=== PATIENT | female | born 1940 | race Caucasian/White ===

== ENCOUNTER 2019-11-26 12:01 | Inpatient (IN) | payer MEDICARE ==
[~2019-11-26] VITALS: Ht 170.2 cm; Wt 81.1 kg
--- NOTE | 2019-11-26 12:45 | NUR ---
Patient in room ORTHO 4009. I have received report from Thelma in [facility] and had the opportunity to ask questions and assume patient care.
--- NOTE | 2019-11-26 16:40 | NUR ---
Pt arrived from [facility], cked in, vitals taken, skin check, paged MD
--- NOTE | 2019-11-26 16:44 | NUR ---
PAGER ID: [phone] MESSAGE: Nicki Antunez on Neuro, Ms. Diggs from [place] has arrived. Pt is in 1910W
[2019-11-26 16:49] VITALS: BP 149/82
[2019-11-26] MEDS ORDERED: magnesium 2GM in 50ml NS 50 ML IV PRN (17:55)
[2019-11-26] MEDS ORDERED: acetaminophen 325mg tablet PO PRN ×2 (17:55)
[2019-11-26] MEDS ORDERED: mag hydrox/Alum hydrox/simeth 30ml oral suspension PO PRN (17:55)
[2019-11-26] MEDS ORDERED: magnesium 4gm in 100ml NS 100 ML IV PRN (17:55)
[2019-11-26] MEDS ORDERED: magnesium hydroxide 30ml (MOM) UD suspension PO PRN (17:55)
[2019-11-26] MEDS ORDERED: morphine 2 MG/ML inj. syringe IV PRN (17:55)
[2019-11-26] MEDS ORDERED: glucagon, human recombinant 1mg kit SUBCUT PRN (17:55)
[2019-11-26] MEDS ORDERED: MESSAGE TO PHARMACY PO ONE (17:55)
[2019-11-26] MEDS ORDERED: ondansetron/PF 4mg/2ml inj IV PRN (17:55)
[2019-11-26] MEDS ORDERED: magnesium Cl slow-release 64mg tablet PO PRN (17:55)
[2019-11-26] MEDS ORDERED: atorvastatin 10mg tablet PO SCH (17:55)
[2019-11-26] MEDS ORDERED: HYDROcodone/acetaminophen 10/325mg tab PO PRN (17:55)
[2019-11-26] MEDS ORDERED: bisacodyl 10mg suppository rectal RC PRN (17:55)
[2019-11-26] MEDS ORDERED: dextrose 50%-water 50ml dispensing syringe IV PRN ×2 (17:55)
[2019-11-26] MEDS ORDERED: potassium Cl 20 mEq SR tablet PO PRN ×2 (17:55)
[2019-11-26] MEDS ORDERED: dextrose ORAL solution 15 GM/59 ML bottle PO PRN ×2 (17:55)
[2019-11-26] MEDS ORDERED: acetaminophen 650mg rectal suppository RC PRN (17:55)
[2019-11-26] MEDS ORDERED: potassium CL 10mEq/100ml bag 100 ML IV PRN ×2 (17:55)
[2019-11-26] MEDS ORDERED: HYDROcodone/acetaminophen 5mg/325mg tablet PO PRN (17:55)
[2019-11-26 18:00] VITALS: BP 163/91
--- NOTE | 2019-11-26 18:18 | NUR ---
Problems reprioritized. Patient report given, questions answered & plan of care reviewed with
--- NOTE | 2019-11-26 18:40 | NUR ---
Patient in room ORTHO 4009. I have received report from Nicki FORD and had the opportunity to ask questions and assume patient care.
[2019-11-26] MEDS ORDERED: atorvastatin 20mg tablet PO SCH (19:20)
[2019-11-26] MEDS ORDERED: IPRA3AMP31 IH (19:25)
[2019-11-26] MEDS ORDERED: SACC250C PO (19:25)
[2019-11-26] MEDS ORDERED: ACET-75 PO (19:25)
[2019-11-26] MEDS ORDERED: INSU100I8 SQ (19:35)
[2019-11-26] MEDS ORDERED: APIX5TAB3 PO (19:35)
[2019-11-26] MEDS ORDERED: DULO60CA65 PO (19:35)
[2019-11-26] MEDS ORDERED: METO-384 PO (19:35)
[2019-11-26] MEDS ORDERED: LISI-600 PO (19:35)
[2019-11-26] MEDS ORDERED: LEVO50TA PO (19:35)
[2019-11-26] MEDS ORDERED: ATOR20TA66 PO (19:35)
[2019-11-26] MEDS ORDERED: [UNRECOGNIZED DRUG - CODE] IV (19:37)
[2019-11-26] MEDS ORDERED: AZIT500T9 PO (19:37)
--- NOTE | 2019-11-26 19:44 | NUR ---
[address] BACK TO ROOM FROM CT AND MRI. AT BEDSIDE. WILL INITIATE NEURO/TELE ORDERED. IVF'S STARTED.
[2019-11-26] MEDS: K and/or MAG REPLACEMENT MC SCH (20:00)
[2019-11-26] MEDS: normal saline 1000ml 1,000 ML IV SCH (20:03)
[2019-11-26] MEDS: heparin, porcine 5000 units/ml vial SQ SCH (20:55)
[2019-11-26] MEDS: insulin glargine (Lantus) pen - multi-dose SQ SCH (21:00)
[2019-11-26 21:07] LABS: HEMOGLOBIN A1C 9.1 % (4.5-6.2)
[2019-11-26 21:21] LABS: CHOL/HDL RATIO 4.4 (0.00-4.99); CHOLESTEROL 172 MG/DL (0-200); HDL CHOLESTEROL 39 MG/DL (35-60); LDL CHOLESTEROL 107 MG/DL (50-100); TRIGLYCERIDES 104 MG/DL (20-135); TROPONIN I < 0.04 NG/ML (0.0-0.05)
[2019-11-26 22:00] VITALS: BP 174/86
--- NOTE | 2019-11-26 23:26 | NUR ---
PATIENT NOT TURNING HEAD TO LEFT AT ALL WHEN ASKED, AND NO MOVEMENT TO L SIDE AT ALL. STATED HE USED A SWAB EARLIER TO MOISTEN HER MOUTH AND THAT PATIENT COUGHED AND "CHOKED". WILL CONTINUE TO KEEP PATIENT NPO TILL ABLE TO BE EVALUATED BY SPEECH THERAPY. HAVE NOTED PATIENT COUGHING ON SALIVA. SPEECH IS ALSO VERY DIFFICULT TO UNDERSTAND D/T L SIDE FACIAL DROOP/PARALYSIS.
[2019-11-27 02:00] VITALS: BP 176/93
[2019-11-27 06:00] VITALS: BP 188/99
--- NOTE | 2019-11-27 06:10 | NUR ---
COMPLETE LINEN CHANGE WITH SKIN CARE DONE AT 0500, PATIENT INCONTINENT OF LARGE AMT URINE, FOUND WICK OUT AND UNDER PATIENTS LEG, EDUCATED PATIENT ON IT'S PURPOSE, BUT SHE IS CONFUSED, WILL NEED REINFORCEMENT. WICK PLACED AFTER SKIN CARE AND PATIENT FELL ASLEEP. REPORT TO EARLY SHIFT RN
[2019-11-27 06:11] LABS: BASOPHILS % (AUTO) 0.4 % (0-1); EOSINOPHILS % (AUTO) 0.4 % (0-6); HEMOGLOBIN 13.4 g/dl (12.0-16.0); LYMPHOCYTES % (AUTO) 14.6 % (21-51); MEAN CORPUSCULAR HGB CONC 33.6 g/dL (33.0-36.5); MEAN CORPUSCULAR VOLUME 89.3 FL (78-98); MEAN PLATELET VOLUME 8.4 FL (7.4-10.4); MONOCYTES # (AUTO) 1.2 X10'3 (0-0.9); MONOCYTES % (AUTO) 8.6 % (2-12); NEUTROPHILS # (AUTO) 10.3 X10'3 (1.8-7.7); PLATELET COUNT 249 X10'3 (140-440); RED BLOOD COUNT 4.48 X10'6 (4.20-5.60); RED CELL DISTRIBUTION WIDTH 14.7 % (11.5-14.5); WHITE BLOOD COUNT 13.6 X10'3 (4.5-11.0)
[2019-11-27 06:43] LABS: ALANINE AMINOTRANSFERASE 25 U/L (12-78); ALBUMIN 3.4 G/DL (3.4-5.0); ALBUMIN/GLOBULIN RATIO 0.8 (1.1-1.5); ALKALINE PHOSPHATASE 106 IU/L (46-116); ANION GAP 11 (8-16); ASPARTATE AMINO TRANSFERASE 23 U/L (10-37); BILIRUBIN,TOTAL 0.8 MG/DL (0.1-1.0); BLOOD UREA NITROGEN 17 MG/DL (7-18); BUN/CREATININE RATIO 20.5 (6.6-38.0); CALCIUM 8.7 MG/DL (8.5-10.1); CHLORIDE 106 MMOL/L (99-107); CHOL/HDL RATIO 4.3 (0.00-4.99); CHOLESTEROL 153 MG/DL (0-200); CREATININE 0.83 MG/DL (0.40-0.90); GLUCOSE 192 MG/DL (70-104); HDL CHOLESTEROL 36 MG/DL (35-60); LDL CHOLESTEROL 93 MG/DL (50-100); MAGNESIUM 2.2 MG/DL (1.5-2.4); PHOSPHORUS 3.6 MG/DL (2.3-4.5); SODIUM 142 MMOL/L (135-145); TOTAL CARBON DIOXIDE 25.1 MMOL/L (24-32); TOTAL PROTEIN 7.5 G/DL (6.4-8.2); TRIGLYCERIDES 133 MG/DL (20-135); TROPONIN I < 0.04 NG/ML (0.0-0.05); eGFR 67 ML/MIN
[2019-11-27 06:44] LABS: POTASSIUM 3.4 MMOL/L (3.5-5.1)
--- NOTE | 2019-11-27 06:55 | NUR ---
REPORT GIVEN TO SETH FORD
[2019-11-27] MEDS: aspirin 325mg tablet, delayed-release (Ecotrin) PO SCH (07:41)
--- NOTE | 2019-11-27 07:41 | NUR ---
pt unable to swallow, pharmacy said that asprin is a one to one, there changed route of asprin from PO to suppository so nursing staff is able to admin medication, continue to monitor
[2019-11-27] MEDS: K and/or MAG REPLACEMENT MC SCH ×2 (08:00→20:00)
[2019-11-27] MEDS ORDERED: aspirin 300mg supp.rect RC SCH (08:00)
[2019-11-27] MEDS: insulin Lispro (HumaLOG) vial - multi-dose SQ SCH ×2 (09:38→13:58)
[2019-11-27] MEDS: normal saline 1000ml 1,000 ML IV SCH ×2 (09:44→23:23)
[2019-11-27 10:00] VITALS: BP 197/89
[2019-11-27] MEDS: duloxetine 30mg CAPSULE.DR PO SCH (10:00)
[2019-11-27] MEDS ORDERED: metoprolol succinate 25mg (24-HOUR) SR. Tablet PO SCH (10:00)
[2019-11-27] MEDS ORDERED: levoTHYROXINE 25mcg tablet PO SCH (10:00)
[2019-11-27] MEDS: ipratropium/albuterol 3ml nebule IH SCH ×3 (11:10→19:55)
--- NOTE | 2019-11-27 11:13 | NUR ---
DM/Donnie consults: A1C 9.1 hx T2DM and Donnie 12. Skin intact. Pt admit w/ acute CVA, UTI, new onset afib, hypothyroidism per MD. Pt AOx1 per EMR and significant trouble swallowing w/ L hemiplegia s/p CVA per MD; NPO pending RUSTIC FENCE BUILDER BSS. Pt is not appropriate for DM ed at this time. Will continue to monitor. Addendum: 11/27/19 at [address] Amended: Links added.
[2019-11-27] MEDS: heparin, porcine 5000 units/ml vial SQ SCH ×2 (11:35→23:26)
[2019-11-27] MEDS ORDERED: ipratropium/albuterol 3ml nebule IH SCH (13:00)
[2019-11-27] MEDS: morphine 2 MG/ML inj. syringe IV PRN (13:08)
[2019-11-27 14:00] VITALS: BP 191/91
[2019-11-27] MEDS ORDERED: CILASTATIN IV SCH (14:00)
[2019-11-27] MEDS ORDERED: IMIPENEM IV SCH (14:00)
--- NOTE | 2019-11-27 14:06 | NUR ---
md aware that nursing staff has checked for a 14f corkpak throughout the entire hospital and is only able to find 8, 10 and 12f, hospitalist notified and said to place the 12f and flush a lot
[2019-11-27 14:35] LABS: CLARITY,URINE SLIGHTLY CLOUDY (Clear); COLOR,URINE YELLOW (Yellow); GLUCOSE, URINE NEGATIVE (Neg); KETONES,URINE TRACE mg/dl (Neg); LEUKOCYTE ESTERASE ,URINE NEGATIVE (Neg); NITRITES, URINE NEGATIVE (Neg); OCCULT BLOOD,URINE NEGATIVE (Neg); PH,URINE 6.5 (4.8-8.0); PROTEIN,URINE TRACE mg/dl (Neg); UA COLLECTION TYPE STRAIGHT CATH; UROBILINOGEN,URINE 0.2 E.U/dL (0.2-1.0)
[2019-11-27 14:42] LABS: SQUAMOUS EPITHELIAL CELL,UR FEW /LPF (FEW)
[2019-11-27 14:44] LABS: BACTERIA,URINE FEW /HPF (Neg); RBC,URINE NONE SEEN /HPF (0-2); WBC,URINE 0-4 /HPF (0-4); YEAST MANY /HPF (NEGATIVE)
--- NOTE | 2019-11-27 15:53 | NUR ---
Call from radiologist, eliza johnson 5cm.
--- NOTE | 2019-11-27 16:05 | NUR ---
TF Consult: NGTF to start today. RN reports pt new scaled wt 71.8kg and RD d/w pt regarding ht who reports 5'7". Pt reports same ht per RN. Able to provide accurate EN recs; will monitor for EN tolerance. F/u: Pt NPO RN reports pending NG to be placed for nutrition today per MD; pending consult. Pt AOx1 s/p acute CVA w/ significant swallowing difficulty and L hemiplegia per EMR. Unable to make accurate TF recs currently since no ht in EMR and pending scaled wt this admit; RD notified RN. LBM 11/24. Will monitor for updated anthropometrics for EN recs, TF tolerance once initiated, and signs of refeeding syndrome given 5 days poor PO CHIEF LENDING OFFICER per RN. Rec: 1. NGTF per MD using Glucerna 1.2 at 65ml/hr goal; to provide 1560ml fluid, 1264ml free water, 1872kcals, and 94g protein. Initiate at 20ml/hr and advance 20ml Q8 to goal as tolerated. 2. water flush 150ml Q4 3. PALB Q /; daily wts 4. routine bowel care 5. once PO; advance diet as medically indicated to carb controlled Addendum: 11/27/19 at [address] Amended: Links added.
[2019-11-27] MEDS: MEROPENEM 1GM/NS 50ML IVPB IV SCH ×2 (16:23→23:34)
--- NOTE | 2019-11-27 16:45 | NUR ---
Patient pulled corpak, no other 12 fr available in the hospital. Will attempt to place 10 fr.
--- NOTE | 2019-11-27 16:54 | NUR ---
called requesting Chani Luna for rehab
--- NOTE | 2019-11-27 17:55 | NUR ---
PAGER ID: [phone] MESSAGE: [id number] Million pulled her corpak already. only 12 we could find. noc will place 10
[2019-11-27 18:00] VITALS: BP 189/96
[2019-11-27] MEDS ORDERED: lactobacillus rhamnosus 10,000 MMU CELLS/CAPSULE PO SCH (20:00)
[2019-11-27 22:00] VITALS: BP 163/95
[2019-11-27] MEDS: insulin glargine (Lantus) pen - multi-dose SQ SCH (23:25)
--- NOTE | 2019-11-28 01:55 | NUR ---
per Dr. Milli ashford to start tube feeding on 20ml/hr per protocol.
[2019-11-28 02:00] VITALS: BP 182/99
[2019-11-28] MEDS ORDERED: acetaminophen 325mg tablet CORPAK PRN ×2 (02:54→02:57)
[2019-11-28] MEDS ORDERED: dextrose ORAL solution 15 GM/59 ML bottle CORPAK PRN ×2 (02:58)
[2019-11-28] MEDS ORDERED: magnesium hydroxide 30ml (MOM) UD suspension CORPAK PRN (03:00)
--- NOTE | 2019-11-28 03:30 | NUR ---
tube feed started at 20ml/hr.
[2019-11-28] MEDS: insulin regular, human U-100 3ml vial - multi-dose SQ SCH ×2 (03:33→08:56)
[2019-11-28 06:00] VITALS: BP 184/100
[2019-11-28 06:35] LABS: BASOPHILS % (AUTO) 0.2 % (0-1); EOSINOPHILS % (AUTO) 0.1 % (0-6); HEMATOCRIT 40.3 % (35.0-45.0); HEMOGLOBIN 13.4 g/dl (12.0-16.0); LYMPHOCYTES # (AUTO) 2.2 X10'3 (1.1-4.8); LYMPHOCYTES % (AUTO) 14.2 % (21-51); MEAN CORPUSCULAR HEMOGLOBIN 29.5 PG (27.0-31.0); MEAN CORPUSCULAR HGB CONC 33.2 g/dL (33.0-36.5); MEAN CORPUSCULAR VOLUME 88.8 FL (78-98); MEAN PLATELET VOLUME 8.8 FL (7.4-10.4); MONOCYTES # (AUTO) 1.4 X10'3 (0-0.9); MONOCYTES % (AUTO) 9.1 % (2-12); NEUTROPHILS # (AUTO) 11.9 X10'3 (1.8-7.7); NEUTROPHILS % (AUTO) 76.4 % (42-75); PLATELET COUNT 253 X10'3 (140-440); RED BLOOD COUNT 4.53 X10'6 (4.20-5.60); RED CELL DISTRIBUTION WIDTH 14.3 % (11.5-14.5); WHITE BLOOD COUNT 15.6 X10'3 (4.5-11.0)
[2019-11-28 06:58] LABS: ALANINE AMINOTRANSFERASE 23 U/L (12-78); ALBUMIN 3.2 G/DL (3.4-5.0); ALBUMIN/GLOBULIN RATIO 0.7 (1.1-1.5); ALKALINE PHOSPHATASE 102 IU/L (46-116); ANION GAP 13 (8-16); ASPARTATE AMINO TRANSFERASE 14 U/L (10-37); BILIRUBIN,TOTAL 0.7 MG/DL (0.1-1.0); BLOOD UREA NITROGEN 18 MG/DL (7-18); CALCIUM 9.6 MG/DL (8.5-10.1); CHLORIDE 107 MMOL/L (99-107); CREATININE 0.72 MG/DL (0.40-0.90); GLUCOSE 189 MG/DL (70-104); MAGNESIUM 2.4 MG/DL (1.5-2.4); PHOSPHORUS 2.7 MG/DL (2.3-4.5); POTASSIUM 3.3 MMOL/L (3.5-5.1); PREALBUMIN 15.3 MG/DL (19-36); SODIUM 144 MMOL/L (135-145); TOTAL CARBON DIOXIDE 23.9 MMOL/L (24-32); TOTAL PROTEIN 7.6 G/DL (6.4-8.2); eGFR 79 ML/MIN
[2019-11-28] MEDS: ipratropium/albuterol 3ml nebule IH SCH ×4 (07:53→19:53)
[2019-11-28] MEDS: K and/or MAG REPLACEMENT MC SCH ×2 (08:00→19:45)
[2019-11-28] MEDS ORDERED: lisinopril 20mg tablet CORPAK SCH (08:00)
[2019-11-28] MEDS: lactobacillus rhamnosus 10,000 MMU CELLS/CAPSULE CORPAK SCH ×2 (08:57→20:40)
[2019-11-28] MEDS: atorvastatin 20mg tablet CORPAK SCH (08:58)
[2019-11-28] MEDS: levoTHYROXINE 25mcg tablet CORPAK SCH (08:58)
[2019-11-28] MEDS: aspirin 325mg tablet, delayed-release (Ecotrin) PO SCH (08:59)
[2019-11-28] MEDS: heparin, porcine 5000 units/ml vial SQ SCH ×2 (08:59→20:43)
[2019-11-28] MEDS: duloxetine 30mg CAPSULE.DR PO SCH (08:59)
[2019-11-28] MEDS: MEROPENEM 1GM/NS 50ML IVPB IV SCH ×3 (09:20→23:33)
[2019-11-28 10:05] VITALS: BP 169/87
[2019-11-28] MEDS: amLODIPine 5mg tablet PO SCH (10:05)
--- NOTE | 2019-11-28 14:30 | NUR ---
tube feed paused. Pt pulled Corpak mostly out of nose. Paged Speech therapy to see when they will be by to evaluate pt, no response. Awaiting speech therapy for swallow eval before attempting another Corpak. Addendum: 11/28/19 at 1646 by Bonny Kimble RN paged speech therapy multiple times. they will come see pt this afternoon. attempted to obtain another 16F corpak but that size no longer available at this time. will wait for speech to eval pt before attempting another corpak at this time. plan for pt to get peg tube tomorrow per Dr. Castañeda.
--- NOTE | 2019-11-28 17:18 | NUR ---
sukhdeep Castañeda - pt pulled out Abner. Speech therapy currently at bedside states pt can do puree & honey thick Addendum: 11/28/19 at 1725 by Bonny Kimble RN stated ok to put pt on diet and be careful for aspiration. ok to d/c Abner.
[2019-11-28] MEDS: POTASSIUM BICARB 20meq eff tab 20 MEQ TABLET.EFF PO PRN (17:50)
[2019-11-28 18:00] VITALS: BP 177/99
--- NOTE | 2019-11-28 18:00 | NUR ---
Patient in room PCU 3027. I have received report from Lizz FORD and had the opportunity to ask questions and assume patient care.
[2019-11-28] MEDS: metoprolol tartrate 25mg tablet PO SCH (20:39)
[2019-11-28] MEDS: insulin glargine (Lantus) pen - multi-dose SQ SCH (20:53)
[2019-11-28 22:00] VITALS: BP 160/85
[2019-11-29] VITALS (7 sets, daily range): BP systolic 131–198; BP diastolic 67–105
[2019-11-29] MEDS: hydrALAZINE 20mg/ml inj. IV PRN ×2 (04:43→21:14)
--- NOTE | 2019-11-29 04:45 | NUR ---
PLACED NEW 20GU. PIV LEFT FOREARM, PT'S BP ELEVATED 198/90, GAVE PRN HYDRALAZINE PER ORDERS. PLACED WICK FOR INCONTINENCE AND LEFT SIDE FLACID.
--- NOTE | 2019-11-29 04:59 | NUR ---
PT WAS CLEARED TO HAVE HONEY THICK LIQUIDS AND PUREE DIET. USE FOUR PACKETS "SIMPLY THICK " IN PITCHER OF WATER WITH ICE. 800ML.
[2019-11-29 06:30] LABS: BASOPHILS # (AUTO) 0.1 X10'3 (0-0.2); BASOPHILS % (AUTO) 0.6 % (0-1); EOSINOPHILS % (AUTO) 0.1 % (0-6); HEMATOCRIT 41.9 % (35.0-45.0); HEMOGLOBIN 13.9 g/dl (12.0-16.0); LYMPHOCYTES # (AUTO) 2.1 X10'3 (1.1-4.8); MEAN CORPUSCULAR HEMOGLOBIN 29.3 PG (27.0-31.0); MEAN CORPUSCULAR HGB CONC 33.2 g/dL (33.0-36.5); MEAN CORPUSCULAR VOLUME 88.2 FL (78-98); MEAN PLATELET VOLUME 8.8 FL (7.4-10.4); MONOCYTES # (AUTO) 1.2 X10'3 (0-0.9); MONOCYTES % (AUTO) 7.7 % (2-12); NEUTROPHILS # (AUTO) 12.7 X10'3 (1.8-7.7); NEUTROPHILS % (AUTO) 78.6 % (42-75); PLATELET COUNT 287 X10'3 (140-440); RED BLOOD COUNT 4.75 X10'6 (4.20-5.60); RED CELL DISTRIBUTION WIDTH 14.4 % (11.5-14.5); WHITE BLOOD COUNT 16.1 X10'3 (4.5-11.0)
--- NOTE | 2019-11-29 06:36 | NUR ---
REPORT GIVEN TO LOGAN ANN.
[2019-11-29 06:43] LABS: ALANINE AMINOTRANSFERASE 24 U/L (12-78); ALBUMIN 3.3 G/DL (3.4-5.0); ALBUMIN/GLOBULIN RATIO 0.7 (1.1-1.5); ALKALINE PHOSPHATASE 108 IU/L (46-116); ANION GAP 11 (8-16); ASPARTATE AMINO TRANSFERASE 16 U/L (10-37); BILIRUBIN,TOTAL 0.8 MG/DL (0.1-1.0); BLOOD UREA NITROGEN 18 MG/DL (7-18); BUN/CREATININE RATIO 25.7 (6.6-38.0); CALCIUM 9.8 MG/DL (8.5-10.1); CHLORIDE 102 MMOL/L (99-107); GLUCOSE 276 MG/DL (70-104); MAGNESIUM 2.2 MG/DL (1.5-2.4); PHOSPHORUS 2.3 MG/DL (2.3-4.5); POTASSIUM 3.4 MMOL/L (3.5-5.1); SODIUM 140 MMOL/L (135-145); TOTAL CARBON DIOXIDE 26.9 MMOL/L (24-32); TOTAL PROTEIN 7.9 G/DL (6.4-8.2); eGFR 81 ML/MIN
[2019-11-29] MEDS ORDERED: insulin Lispro (HumaLOG) vial - multi-dose SQ SCH (07:00)
[2019-11-29] MEDS: ipratropium/albuterol 3ml nebule IH SCH ×4 (07:15→20:15)
[2019-11-29] MEDS: K and/or MAG REPLACEMENT MC SCH ×2 (08:00→20:00)
[2019-11-29] MEDS ORDERED: lisinopril 20mg tablet CORPAK SCH (08:00)
[2019-11-29] MEDS: MEROPENEM 1GM/NS 50ML IVPB IV SCH ×2 (08:32→16:47)
[2019-11-29] MEDS: amLODIPine 5mg tablet PO SCH (08:34)
[2019-11-29] MEDS: duloxetine 30mg CAPSULE.DR PO SCH (08:34)
[2019-11-29] MEDS: atorvastatin 20mg tablet CORPAK SCH (08:34)
[2019-11-29] MEDS: aspirin 325mg tablet, delayed-release (Ecotrin) PO SCH (08:34)
[2019-11-29] MEDS: heparin, porcine 5000 units/ml vial SQ SCH ×2 (08:35→20:42)
[2019-11-29] MEDS: metoprolol tartrate 25mg tablet PO SCH (08:46)
[2019-11-29] MEDS: lactobacillus rhamnosus 10,000 MMU CELLS/CAPSULE CORPAK SCH ×2 (08:47→20:27)
[2019-11-29] MEDS: levoTHYROXINE 25mcg tablet CORPAK SCH (08:47)
[2019-11-29] MEDS: insulin Lispro (HumaLOG) vial - multi-dose SQ SCH ×3 (09:27→22:12)
--- NOTE | 2019-11-29 11:31 | NUR ---
F/u (11/28): Pt pulled corpak and advanced to carb controlled/pureed/honey diet per COMMERCIAL GREEN RETROFIT ARCHITECT/MD recs. Eating well per RN today PO 50-75% avg first meals. LBM 11/24 w/ dulcolax and MoM PRN ordered though not given; may benefit from routine bowel care since tolerating PO. Will continue to monitor. Rec: 1. continue carb controlled/pureed/honey diet per COMMERCIAL GREEN RETROFIT ARCHITECT/MD recs 2. monitor for ONS needs if PO declines 3. weekly wts 4. routine bowel care Addendum: 11/29/19 at [address] Amended: Links added.
[2019-11-29] MEDS ORDERED: diltiazem 5mg/ml 5ml inj. IV ONE (16:35)
--- NOTE | 2019-11-29 17:24 | NUR ---
Patient in room ORTHO 4009. I have received report from Araceli FORD and had the opportunity to ask questions and assume patient care. Patient has yet to arrive on Unit. Cleocin and Metoprolol have yet to be given from prior nurse.
[2019-11-29] MEDS: metoprolol succinate 25mg (24-HOUR) SR. Tablet PO SCH (17:38)
--- NOTE | 2019-11-29 17:50 | NUR ---
Inquired about Cleocin order that had not been given yet, Regla stated she would check her [employer] and let us know or send it to tele. Reported to Arturo Motley shift nurse.
--- NOTE | 2019-11-29 18:00 | NUR ---
Assumed care of patient. HR in the 130's. Metoprolol given as ordered. 2 RN skin check obtained and vital signs obtained. Patient placed on mobile 65, HR currently 123 still currently in a-fib. Will report to NOC shift.
--- NOTE | 2019-11-29 18:33 | NUR ---
Problems reprioritized. Patient report given, questions answered & plan of care reviewed with Arturo FORD. Reported off that the prior nurse will complete all prior interventions that are incomplete. Also reported that the patient had not received all 3 doses of potassium thus far and will require 2 more doses. Informed nurse of interventions completed on Tele since admission. Pt. was oriented to new environment, call light in reach and patient stated she is not symptomatic at this time.
--- NOTE | 2019-11-29 19:27 | NUR ---
PAGER ID: [phone] MESSAGE: [id number], Dayanara Diggs.CVA left sided weakness, was on orthoneuro til today where she developed AFib RVR, was given 10mg IV Cardizem and 100 mg metoprolol. Heart rate was in the 120's after. Patient is now sustaining above 130's EXT [id number]
[2019-11-29] MEDS ORDERED: metoprolol tartrate 50mg tablet PO ONE (19:45)
[2019-11-29] MEDS: clindamycin 600mg/D5W 50ml 50 ML IV SCH ×2 (20:00→20:27)
[2019-11-29] MEDS: morphine 2 MG/ML inj. syringe IV PRN (21:14)
[2019-11-29] MEDS: insulin glargine (Lantus) pen - multi-dose SQ SCH (22:10)
[2019-11-30] VITALS (13 sets, daily range): BP systolic 92–161; BP diastolic 52–86
[2019-11-30] MEDS: MEROPENEM 1GM/NS 50ML IVPB IV SCH ×3 (01:01→15:07)
[2019-11-30] MEDS: POTASSIUM BICARB 20meq eff tab 20 MEQ TABLET.EFF PO PRN (01:01)
[2019-11-30] MEDS: clindamycin 600mg/D5W 50ml 50 ML IV SCH ×4 (02:39→19:39)
[2019-11-30 05:27] LABS: BASOPHILS # (AUTO) 0.1 X10'3 (0-0.2); BASOPHILS % (AUTO) 0.5 % (0-1); EOSINOPHILS % (AUTO) 0.2 % (0-6); HEMATOCRIT 42.2 % (35.0-45.0); HEMOGLOBIN 13.8 g/dl (12.0-16.0); LYMPHOCYTES % (AUTO) 15.8 % (21-51); MEAN CORPUSCULAR HEMOGLOBIN 28.9 PG (27.0-31.0); MEAN CORPUSCULAR HGB CONC 32.6 g/dL (33.0-36.5); MEAN CORPUSCULAR VOLUME 88.6 FL (78-98); MEAN PLATELET VOLUME 8.8 FL (7.4-10.4); MONOCYTES # (AUTO) 1.3 X10'3 (0-0.9); MONOCYTES % (AUTO) 10.7 % (2-12); NEUTROPHILS % (AUTO) 72.8 % (42-75); PLATELET COUNT 365 X10'3 (140-440); RED BLOOD COUNT 4.77 X10'6 (4.20-5.60); RED CELL DISTRIBUTION WIDTH 14.6 % (11.5-14.5); WHITE BLOOD COUNT 12.4 X10'3 (4.5-11.0)
[2019-11-30 05:38] LABS: ALANINE AMINOTRANSFERASE 23 U/L (12-78); ALBUMIN 3.2 G/DL (3.4-5.0); ALBUMIN/GLOBULIN RATIO 0.7 (1.1-1.5); ALKALINE PHOSPHATASE 101 IU/L (46-116); ANION GAP 10 (8-16); ASPARTATE AMINO TRANSFERASE 17 U/L (10-37); BILIRUBIN,TOTAL 0.6 MG/DL (0.1-1.0); BLOOD UREA NITROGEN 24 MG/DL (7-18); BUN/CREATININE RATIO 29.3 (6.6-38.0); CALCIUM 9.5 MG/DL (8.5-10.1); CHLORIDE 105 MMOL/L (99-107); CREATININE 0.82 MG/DL (0.40-0.90); GLUCOSE 255 MG/DL (70-104); MAGNESIUM 2.3 MG/DL (1.5-2.4); PHOSPHORUS 2.7 MG/DL (2.3-4.5); POTASSIUM 3.5 MMOL/L (3.5-5.1); SODIUM 142 MMOL/L (135-145); TOTAL CARBON DIOXIDE 26.7 MMOL/L (24-32); TOTAL PROTEIN 7.7 G/DL (6.4-8.2); eGFR 68 ML/MIN
--- NOTE | 2019-11-30 06:16 | NUR ---
Patient in room PCU 3027. I have received report from deb FORD and had the opportunity to ask questions and assume patient care.
--- NOTE | 2019-11-30 06:26 | NUR ---
Problems reprioritized. Patient report given, questions answered & plan of care reviewed with Lizbeth Stern
[2019-11-30] MEDS ORDERED: acetaminophen 325mg tablet PO PRN ×2 (07:24)
[2019-11-30] MEDS ORDERED: dextrose ORAL solution 15 GM/59 ML bottle PO PRN ×2 (07:25)
[2019-11-30] MEDS ORDERED: magnesium hydroxide 30ml (MOM) UD suspension PO PRN (07:27)
[2019-11-30] MEDS: ipratropium/albuterol 3ml nebule IH SCH ×5 (07:31→19:26)
[2019-11-30] MEDS: duloxetine 30mg CAPSULE.DR PO SCH (08:00)
[2019-11-30] MEDS: K and/or MAG REPLACEMENT MC SCH ×2 (08:00→20:00)
[2019-11-30] MEDS: heparin, porcine 5000 units/ml vial SQ SCH ×2 (08:12→19:39)
[2019-11-30] MEDS ORDERED: aspirin 325mg tablet PO SCH (08:20)
[2019-11-30] MEDS: levoTHYROXINE 25mcg tablet PO SCH (08:21)
[2019-11-30] MEDS: atorvastatin 20mg tablet PO SCH (08:21)
[2019-11-30] MEDS: lisinopril 20mg tablet PO SCH (08:21)
[2019-11-30] MEDS: amLODIPine 5mg tablet PO SCH (08:22)
[2019-11-30] MEDS: metoprolol succinate 25mg (24-HOUR) SR. Tablet PO SCH (08:22)
[2019-11-30] MEDS: lactobacillus rhamnosus 10,000 MMU CELLS/CAPSULE PO SCH ×2 (08:22→20:00)
--- NOTE | 2019-11-30 08:30 | NUR ---
Patient had pulled corepak out. Pharmacy was called to convert medications to po. Called and spoke to Paul who approved all medications to be crushed beside Cymbalta. That med was not given at this time
[2019-11-30] MEDS: insulin Lispro (HumaLOG) vial - multi-dose SQ SCH ×3 (10:29→20:53)
[2019-11-30] MEDS ORDERED: diltiazem 5mg/ml 5ml inj. IV ONE (11:50)
--- NOTE | 2019-11-30 12:00 | NUR ---
Dr. Castañeda at bedside with patient. MD made aware of heart rate above 150s. New orders a once time dose of 10mg IV cardizem, Cardizem drip starting at 5ml/hr. MD is aware of Cymbalta not given this am med pass due to inability to crush or open capsule. No new orders for Cymbalta at this time. Will continue to monitor.
[2019-11-30] MEDS: diltiazem-NS 100mg/100ml 100 ML IV SCH (12:51)
--- NOTE | 2019-11-30 16:28 | NUR ---
Dr. Castañeda called regarding patients UA from previous hospital. Obtaining labs now from [facility]. Spoke with zulma who is faxing labs over. Will continue to monitor.
--- NOTE | 2019-11-30 16:53 | NUR ---
Paged Dr Jigna Castañeda Re: Dayanara Diggs RM [id number]. [facility] faxed results from culture and is in paper chart. Thank you Lizbeth RN [phone]
--- NOTE | 2019-11-30 18:42 | NUR ---
Problems reprioritized. Patient report given, questions answered & plan of care reviewed with Feli FORD.
[2019-11-30] MEDS: insulin glargine (Lantus) pen - multi-dose SQ SCH (20:54)
[2019-12-01] VITALS (9 sets, daily range): BP systolic 125–141; BP diastolic 71–108
[2019-12-01] MEDS: MEROPENEM 1GM/NS 50ML IVPB IV SCH ×3 (01:27→16:41)
[2019-12-01] MEDS: clindamycin 600mg/D5W 50ml 50 ML IV SCH ×4 (02:00→20:39)
[2019-12-01 05:39] LABS: BASOPHILS % (AUTO) 0.4 % (0-1); EOSINOPHILS % (AUTO) 0.2 % (0-6); HEMATOCRIT 40.4 % (35.0-45.0); HEMOGLOBIN 13.3 g/dl (12.0-16.0); LYMPHOCYTES # (AUTO) 2.3 X10'3 (1.1-4.8); LYMPHOCYTES % (AUTO) 18.7 % (21-51); MEAN CORPUSCULAR HEMOGLOBIN 29.3 PG (27.0-31.0); MEAN CORPUSCULAR HGB CONC 32.9 g/dL (33.0-36.5); MEAN CORPUSCULAR VOLUME 89.3 FL (78-98); MEAN PLATELET VOLUME 8.8 FL (7.4-10.4); MONOCYTES # (AUTO) 1.1 X10'3 (0-0.9); MONOCYTES % (AUTO) 8.8 % (2-12); NEUTROPHILS # (AUTO) 8.9 X10'3 (1.8-7.7); NEUTROPHILS % (AUTO) 71.9 % (42-75); PLATELET COUNT 329 X10'3 (140-440); RED BLOOD COUNT 4.52 X10'6 (4.20-5.60); RED CELL DISTRIBUTION WIDTH 14.5 % (11.5-14.5); WHITE BLOOD COUNT 12.3 X10'3 (4.5-11.0)
[2019-12-01] MEDS: diltiazem-NS 100mg/100ml 100 ML IV SCH (05:54)
[2019-12-01 05:55] LABS: ALANINE AMINOTRANSFERASE 7 U/L (12-78); ALBUMIN 2.9 G/DL (3.4-5.0); ALBUMIN/GLOBULIN RATIO 0.7 (1.1-1.5); ALKALINE PHOSPHATASE 99 IU/L (46-116); ANION GAP 8 (8-16); ASPARTATE AMINO TRANSFERASE 22 U/L (10-37); BILIRUBIN,TOTAL 0.6 MG/DL (0.1-1.0); BLOOD UREA NITROGEN 29 MG/DL (7-18); CALCIUM 9.3 MG/DL (8.5-10.1); CHLORIDE 104 MMOL/L (99-107); GLUCOSE 189 MG/DL (70-104); MAGNESIUM 2.2 MG/DL (1.5-2.4); PHOSPHORUS 3.1 MG/DL (2.3-4.5); SODIUM 143 MMOL/L (135-145); TOTAL CARBON DIOXIDE 30.6 MMOL/L (24-32); TOTAL PROTEIN 7.2 G/DL (6.4-8.2); eGFR 54 ML/MIN
--- NOTE | 2019-12-01 06:14 | NUR ---
PAGER ID: [phone] MESSAGE: Dayanara Diggs [id number] admitted with CVA/L side weakness, pt K is 3.0 this AM and no replacement protocol is ordered yet thank you Keren FORD [phone]
[2019-12-01] MEDS ORDERED: magnesium Cl slow-release 64mg tablet PO PRN (06:15)
[2019-12-01] MEDS ORDERED: potassium Cl 20 mEq SR tablet PO PRN ×2 (06:15)
[2019-12-01] MEDS ORDERED: magnesium 4gm in 100ml NS 100 ML IV PRN (06:15)
--- NOTE | 2019-12-01 06:25 | NUR ---
Patient in room PCU 3027. I have received report from Keren FORD, and had the opportunity to ask questions and assume patient care.
--- NOTE | 2019-12-01 06:42 | NUR ---
Problems reprioritized. Patient report given, questions answered & plan of care reviewed with Katy FORD.
[2019-12-01] MEDS: levoTHYROXINE 25mcg tablet PO SCH (08:00)
[2019-12-01] MEDS: metoprolol succinate 25mg (24-HOUR) SR. Tablet PO SCH (08:00)
[2019-12-01] MEDS: K and/or MAG REPLACEMENT MC SCH ×2 (08:00→20:00)
[2019-12-01] MEDS: lactobacillus rhamnosus 10,000 MMU CELLS/CAPSULE PO SCH ×2 (08:00→20:00)
[2019-12-01] MEDS: lisinopril 20mg tablet PO SCH (08:00)
[2019-12-01] MEDS: amLODIPine 5mg tablet PO SCH (08:00)
[2019-12-01] MEDS: atorvastatin 20mg tablet PO SCH (08:00)
[2019-12-01] MEDS: duloxetine 30mg CAPSULE.DR PO SCH (08:00)
[2019-12-01] MEDS: ipratropium/albuterol 3ml nebule IH SCH ×4 (08:23→19:12)
[2019-12-01] MEDS: insulin Lispro (HumaLOG) vial - multi-dose SQ SCH ×2 (08:48→14:01)
[2019-12-01] MEDS: potassium CL 10mEq/100ml bag 100 ML IV PRN ×8 (09:40→20:39)
--- NOTE | 2019-12-01 09:48 | NUR ---
Awaiting MD orders. PAGER ID: [phone] MESSAGE: Re: Arnoldo Diggsia. [id number]. Speech Therapist failed patient during swallow study. Recommends placing patient on NPO until tomorrow. Would you like to switch her AM medications to another route? Katy Scales, #[phone]
[2019-12-01] MEDS: heparin, porcine 5000 units/ml vial SQ SCH (10:37)
[2019-12-01] MEDS ORDERED: aspirin 300mg supp.rect RC SCH (11:15)
--- NOTE | 2019-12-01 11:18 | NUR ---
Spoke to Dr. Castañeda, who agrees with the Speech therapist recommendation of keeping the patient NPO. Dr. Castañeda wants to hold the PO orders until PEG tube is placed, to change asprin PO to an asprin suppository once daily, and to continue physical therapy orders.
--- NOTE | 2019-12-01 12:02 | NUR ---
Paged Stroke Nurse Bonnie Rucker, LOGAN about patient's condition. Patient slow to arouse after sleeping, required sternal rub with RT during her treatment, and slow to respond to questioning. Bonnie notified and will consult. Patient vital signs are currently stable and working and cooperating with physical therapy. Will continue to monitor.
--- NOTE | 2019-12-01 15:06 | NUR ---
I have reviewed and agree with all medications administered and interventions performed by [facility] Student Piyush Vitale Addendum: 12/01/19 at 1507 by Louise Canales RT Amended: Links added.
--- NOTE | 2019-12-01 18:21 | NUR ---
Problems reprioritized. Patient report given, questions answered & plan of care reviewed with LOGAN Llanes.
--- NOTE | 2019-12-01 18:33 | NUR ---
Patient in room PCU 3027. I have received report from Katy FORD and had the opportunity to ask questions and assume patient care.
[2019-12-01] MEDS: insulin glargine (Lantus) pen - multi-dose SQ SCH (21:00)
[2019-12-01] MEDS: meropenem inj 1 GM in normal saline 100ml IV soln 100 ML IV SCH (23:05)
[2019-12-02] VITALS (22 sets, daily range): BP systolic 124–187; BP diastolic 66–123
[2019-12-02] MEDS: clindamycin 600mg/D5W 50ml 50 ML IV SCH ×4 (02:13→20:41)
--- NOTE | 2019-12-02 02:23 | NUR ---
Page Sent promotional table spacer PAGER ID: [phone] MESSAGE: [id number] - DOMINGO SEGOVIA 79/F - patient converted from NSR back to AFIB at 2300 rate now at 120s-140s cardizem @ 5ml/hr do you want a ivp dose or to increase the gtt rate? [phone] Brendan FORD
[2019-12-02] MEDS: diltiazem-NS 100mg/100ml 100 ML IV SCH ×3 (03:32→16:45)
[2019-12-02 05:09] LABS: BASOPHILS # (AUTO) 0.2 X10'3 (0-0.2); BASOPHILS % (AUTO) 1.4 % (0-1); EOSINOPHILS # (AUTO) 0.1 X10'3 (0-0.9); EOSINOPHILS % (AUTO) 0.5 % (0-6); HEMOGLOBIN 13.9 g/dl (12.0-16.0); LYMPHOCYTES # (AUTO) 1.7 X10'3 (1.1-4.8); LYMPHOCYTES % (AUTO) 11.8 % (21-51); MEAN CORPUSCULAR HEMOGLOBIN 29.5 PG (27.0-31.0); MEAN CORPUSCULAR HGB CONC 33.1 g/dL (33.0-36.5); MEAN CORPUSCULAR VOLUME 89.2 FL (78-98); MEAN PLATELET VOLUME 8.8 FL (7.4-10.4); MONOCYTES # (AUTO) 0.9 X10'3 (0-0.9); MONOCYTES % (AUTO) 6.6 % (2-12); NEUTROPHILS # (AUTO) 11.4 X10'3 (1.8-7.7); NEUTROPHILS % (AUTO) 79.7 % (42-75); PLATELET COUNT 368 X10'3 (140-440); RED BLOOD COUNT 4.71 X10'6 (4.20-5.60); RED CELL DISTRIBUTION WIDTH 14.7 % (11.5-14.5); WHITE BLOOD COUNT 14.3 X10'3 (4.5-11.0)
[2019-12-02 05:24] LABS: ALANINE AMINOTRANSFERASE 23 U/L (12-78); ALBUMIN/GLOBULIN RATIO 0.7 (1.1-1.5); ALKALINE PHOSPHATASE 97 IU/L (46-116); ANION GAP 8 (8-16); ASPARTATE AMINO TRANSFERASE 17 U/L (10-37); BILIRUBIN,TOTAL 0.6 MG/DL (0.1-1.0); BLOOD UREA NITROGEN 26 MG/DL (7-18); BUN/CREATININE RATIO 27.7 (6.6-38.0); CALCIUM 9.4 MG/DL (8.5-10.1); CHLORIDE 105 MMOL/L (99-107); CREATININE 0.94 MG/DL (0.40-0.90); GLUCOSE 238 MG/DL (70-104); MAGNESIUM 2.3 MG/DL (1.5-2.4); POTASSIUM 3.9 MMOL/L (3.5-5.1); SODIUM 141 MMOL/L (135-145); TOTAL CARBON DIOXIDE 28.2 MMOL/L (24-32); TOTAL PROTEIN 7.4 G/DL (6.4-8.2); eGFR 58 ML/MIN
--- NOTE | 2019-12-02 06:17 | NUR ---
Problems reprioritized. Patient report given, questions answered & plan of care reviewed with Katy FORD.
--- NOTE | 2019-12-02 06:22 | NUR ---
Patient in room PCU 3027. I have received report from LOGAN Llanes and had the opportunity to ask questions and assume patient care.
[2019-12-02] MEDS: ipratropium/albuterol 3ml nebule IH SCH ×4 (07:00→19:11)
--- NOTE | 2019-12-02 07:05 | NUR ---
notified. PAGER ID: [phone] MESSAGE: Re: Dayanara Diggs. [id number]. PCU. FYI. Patient reconverted into Afib with RVR last night at 2300. Dr. Márquez titrated diltazem drip to 7.5mg/hr. Patient is scheduled to go to IR at 0800. Will continue to monitor. Katy N #[phone]
[2019-12-02] MEDS: metoprolol succinate 25mg (24-HOUR) SR. Tablet PO SCH (08:00)
[2019-12-02] MEDS: K and/or MAG REPLACEMENT MC SCH ×2 (08:00→20:00)
[2019-12-02] MEDS: duloxetine 30mg CAPSULE.DR PO SCH ×2 (08:00→11:49)
[2019-12-02 08:06] LABS: PARTIAL THROMBOPLASTIN TIME 27 SECONDS (22-32)
[2019-12-02] MEDS ORDERED: MIDAZolam 1mg/ml 10ml vial ONE (08:46)
[2019-12-02] MEDS ORDERED: fentaNYL/PF 50MCG/1 ML 2ML syringe ONE (08:46)
[2019-12-02] MEDS ORDERED: ceFAZolin 1GM/D5W- ADD-VANTAGE 50 ML IV ONE (09:39)
[2019-12-02] MEDS: meropenem inj 1 GM in normal saline 100ml IV soln 100 ML IV SCH ×3 (11:25→23:50)
--- NOTE | 2019-12-02 11:35 | NUR ---
notified. PAGER ID: [phone] MESSAGE: Re: Dayanara Diggs. [id number]. Pt. returned from IR with PEG tube. Going to give daily medications but Metoprolol XL needs to be changed to lopressor bid, per pharmacy. Thanks. Katy Scales #[phone]
[2019-12-02] MEDS: lactobacillus rhamnosus 10,000 MMU CELLS/CAPSULE PO SCH ×2 (11:50→20:44)
[2019-12-02] MEDS: amLODIPine 5mg tablet PO SCH (11:50)
[2019-12-02] MEDS: levoTHYROXINE 25mcg tablet PO SCH (11:50)
[2019-12-02] MEDS: lisinopril 20mg tablet PO SCH (11:50)
[2019-12-02] MEDS: atorvastatin 20mg tablet PO SCH (11:51)
--- NOTE | 2019-12-02 12:15 | NUR ---
Spoked to Dr. Castañeda as he made rounds. Discussed redness and moisture in patient's groin, would like to have nystatin powder ordered. He also would like a Ice Resurfacing Machine Operators consult for PEG tube feeding and for the patient to remain NPO until tomorrow. He also wants Lopressor BID and aspirin to be ordered.
[2019-12-02] MEDS ORDERED: aspirin 325mg tablet PEG ONE (12:40)
[2019-12-02] MEDS: insulin Lispro (HumaLOG) vial - multi-dose SQ SCH (13:09)
--- NOTE | 2019-12-02 14:13 | NUR ---
TF consult: Pt s/p BSS 11/[address] samuel NPO and reassess d/t pt unable to move bolus and had to spit out food. Pt s/p PEG placement today. Continuous TF recommendations below for during admission once MD ashley use of PEG and bolus TF recommendations for discharge below. LBM 11/24. Pt with PRN bowel care available however would benefit from routine bowel care to assist with TF tolerance. Pt continues to be documented as A/O x 2, DM education remains not appropriate at this time. Will continue to follow closely. Recommendations: 1) Once MD ashley the use of PEG, continuous TF via PEG using Glucerna 1.2 with goal rate of 65 mL/hr to provide: 1560 mL total volume/day, 1872 kcal, 94 g protein, and 1256 mL water 2) Additional 105 mL water flush Q4H 3) Prealbumin q Thursday/ 4) Daily weights 5) Routine bowel [facility] BOLUS PEG RECS: 1) Bolus feeds four times a day using Glucerna 1.2 to begin at 120 mL bolus and advance by 50 mL each bolus as tolerated to goal rate of 375 mL/bolus QID 2) Additional 80 mL water flush before and after each bolus feed 3) Outpatient RD to titrate to goal rate and make adjustments as needed according to patient's estimated nutrient needs Addendum: 12/02/19 at [address] Amended: Links added.
--- NOTE | 2019-12-02 14:44 | NUR ---
Awaiting response. Will continue to monitor. PAGER ID: [phone] MESSAGE: Re: Dayanara Diggs. [id number]. Pt heart rate increasing into the 150'- and 160's periodically. would you like to titrate her diltiazem further? Or give her fluids? Thanks. Katy Scales, #[phone]
[2019-12-02] MEDS: nystatin 15 GM powder TP SCH ×2 (15:08→20:44)
--- NOTE | 2019-12-02 16:19 | NUR ---
Spoke to Dr. Castañeda, who ordered the diltiazem titrated to 10mg/hr. VS; 142/73, HR 116 intermittently increasing to 140's-160's. Will continue to monitor.
[2019-12-02] MEDS ORDERED: digoxin 250mcg/ml 2ml ampule IV ONE (16:30)
--- NOTE | 2019-12-02 18:16 | NUR ---
Problems reprioritized. Patient report given, questions answered & plan of care reviewed with Mario Alberto FORD.
[2019-12-02] MEDS: metoprolol tartrate 12.5mg (1/2 tablet) PEG SCH (20:44)
[2019-12-02] MEDS: insulin glargine (Lantus) pen - multi-dose SQ SCH (21:15)
[2019-12-02] MEDS: digoxin 250mcg/ml 2ml ampule IV SCH (23:50)
[2019-12-03] VITALS (16 sets, daily range): BP systolic 121–173; BP diastolic 54–84
[2019-12-03] MEDS: clindamycin 600mg/D5W 50ml 50 ML IV SCH ×3 (02:16→14:47)
[2019-12-03] MEDS: diltiazem-NS 100mg/100ml 100 ML IV SCH ×3 (02:25→16:23)
--- NOTE | 2019-12-03 06:20 | NUR ---
Patient in room PCU 3027. I have received report from Mario Alberto FORD and had the opportunity to ask questions and assume patient care.
--- NOTE | 2019-12-03 06:25 | NUR ---
Problems reprioritized. Patient report given, questions answered & plan of care reviewed with Katy FORD
[2019-12-03] MEDS: ipratropium/albuterol 3ml nebule IH SCH ×4 (06:42→19:00)
[2019-12-03] MEDS: duloxetine 30mg CAPSULE.DR PO SCH (08:00)
[2019-12-03] MEDS: K and/or MAG REPLACEMENT MC SCH ×2 (08:00→20:00)
[2019-12-03] MEDS: meropenem inj 1 GM in normal saline 100ml IV soln 100 ML IV SCH ×2 (08:14→17:19)
[2019-12-03] MEDS: atorvastatin 20mg tablet PO SCH (08:15)
[2019-12-03] MEDS: amLODIPine 5mg tablet PO SCH (08:16)
[2019-12-03] MEDS: lisinopril 20mg tablet PO SCH (08:16)
[2019-12-03] MEDS: lactobacillus rhamnosus 10,000 MMU CELLS/CAPSULE PO SCH ×2 (08:17→19:57)
[2019-12-03] MEDS: metoprolol tartrate 12.5mg (1/2 tablet) PEG SCH ×2 (08:17→19:57)
[2019-12-03] MEDS: levoTHYROXINE 25mcg tablet PO SCH (08:17)
[2019-12-03] MEDS ORDERED: aspirin 81mg tablet.DR PO SCH (08:30)
[2019-12-03] MEDS: digoxin 250mcg/ml 2ml ampule IV SCH (09:24)
[2019-12-03] MEDS: nystatin 15 GM powder TP SCH ×3 (09:34→19:58)
[2019-12-03] MEDS: insulin regular, human U-100 3ml vial - multi-dose SQ SCH ×3 (10:13→19:54)
[2019-12-03 12:25] LABS: BASOPHILS # (AUTO) 0.1 X10'3 (0-0.2); BASOPHILS % (AUTO) 0.5 % (0-1); EOSINOPHILS # (AUTO) 0.1 X10'3 (0-0.9); EOSINOPHILS % (AUTO) 0.3 % (0-6); HEMATOCRIT 42.6 % (35.0-45.0); HEMOGLOBIN 13.9 g/dl (12.0-16.0); LYMPHOCYTES # (AUTO) 1.6 X10'3 (1.1-4.8); LYMPHOCYTES % (AUTO) 9.4 % (21-51); MEAN CORPUSCULAR HGB CONC 32.5 g/dL (33.0-36.5); MEAN CORPUSCULAR VOLUME 89.3 FL (78-98); MEAN PLATELET VOLUME 8.4 FL (7.4-10.4); MONOCYTES # (AUTO) 1.7 X10'3 (0-0.9); MONOCYTES % (AUTO) 9.7 % (2-12); NEUTROPHILS # (AUTO) 13.8 X10'3 (1.8-7.7); NEUTROPHILS % (AUTO) 80.1 % (42-75); PLATELET COUNT 346 X10'3 (140-440); RED BLOOD COUNT 4.77 X10'6 (4.20-5.60); RED CELL DISTRIBUTION WIDTH 14.7 % (11.5-14.5); WHITE BLOOD COUNT 17.3 X10'3 (4.5-11.0)
[2019-12-03 12:33] LABS: ALBUMIN 2.8 G/DL (3.4-5.0); ANION GAP 8 (8-16); BLOOD UREA NITROGEN 30 MG/DL (7-18); BUN/CREATININE RATIO 31.9 (6.6-38.0); CHLORIDE 110 MMOL/L (99-107); CREATININE 0.94 MG/DL (0.40-0.90); GLUCOSE 251 MG/DL (70-104); POTASSIUM 3.7 MMOL/L (3.5-5.1); SODIUM 147 MMOL/L (135-145); TOTAL CARBON DIOXIDE 28.7 MMOL/L (24-32); eGFR 58 ML/MIN
--- NOTE | 2019-12-03 13:12 | NUR ---
Visited briefly.Alert today. Extremely soft spoken and very difficult to understand. Unable to direct gaze past midline to the left for me, otherwise NIH unchanged. Peg placed yesterday. Sleepy post procedure. Held off on visit until today.
--- NOTE | 2019-12-03 16:30 | NUR ---
notified. Will continue to monitor. PAGER ID: [phone] MESSAGE: Re: Dayanara Diggs. [id number]. Pt. sustaining 140 heart rate, with 2:1 atrial flutter per dietetic technician. Patient repirations staying around 30 respirations. 95% on 3L. Will continue to monitor. Katy Scales #[phone]
[2019-12-03] MEDS ORDERED: amiodarone 150mg/dext, iso-os 100 ML IV ONE (16:35)
--- NOTE | 2019-12-03 16:43 | NUR ---
notified. MIREILLE tinoco PAGER ID: [phone] MESSAGE: Re: Dayanara Diggs. [id number]. Do you want Cardizem and Amiodarone drip to be running? Or do you want to DC the Cardizem drip? Katy Scales #[phone]
[2019-12-03] MEDS: amiodarone/D5 360MG/200ML BAG 200 ML IV SCH ×2 (17:11→23:20)
--- NOTE | 2019-12-03 18:10 | NUR ---
Problems reprioritized. Patient report given, questions answered & plan of care reviewed with LOGAN Huber.
[2019-12-03] MEDS: piperacillin/tazo 3.375gm/50ml 50 ML IV SCH ×2 (19:07→23:54)
[2019-12-03] MEDS: insulin glargine (Lantus) pen - multi-dose SQ SCH (19:55)
[2019-12-04] VITALS (10 sets, daily range): BP systolic 118–175; BP diastolic 50–107
[2019-12-04] MEDS: insulin regular, human U-100 3ml vial - multi-dose SQ SCH ×3 (02:05→14:39)
[2019-12-04 05:39] LABS: ALANINE AMINOTRANSFERASE 26 U/L (12-78); ALBUMIN 2.7 G/DL (3.4-5.0); ALBUMIN/GLOBULIN RATIO 0.6 (1.1-1.5); ALKALINE PHOSPHATASE 94 IU/L (46-116); ANION GAP 9 (8-16); ASPARTATE AMINO TRANSFERASE 20 U/L (10-37); BILIRUBIN,TOTAL 0.4 MG/DL (0.1-1.0); BLOOD UREA NITROGEN 38 MG/DL (7-18); BUN/CREATININE RATIO 36.2 (6.6-38.0); CALCIUM 9.3 MG/DL (8.5-10.1); CHLORIDE 112 MMOL/L (99-107); CREATININE 1.05 MG/DL (0.40-0.90); GLUCOSE 193 MG/DL (70-104); MAGNESIUM 2.7 MG/DL (1.5-2.4); PHOSPHORUS 1.8 MG/DL (2.3-4.5); POTASSIUM 3.7 MMOL/L (3.5-5.1); SODIUM 149 MMOL/L (135-145); TOTAL CARBON DIOXIDE 28.1 MMOL/L (24-32); TOTAL PROTEIN 6.9 G/DL (6.4-8.2); eGFR 51 ML/MIN
[2019-12-04 06:14] LABS: BASOPHILS % (AUTO) 0.3 % (0-1); EOSINOPHILS # (AUTO) 0.2 X10'3 (0-0.9); HEMATOCRIT 42.4 % (35.0-45.0); LYMPHOCYTES # (AUTO) 2.7 X10'3 (1.1-4.8); LYMPHOCYTES % (AUTO) 14.1 % (21-51); MEAN CORPUSCULAR HEMOGLOBIN 29.9 PG (27.0-31.0); MEAN CORPUSCULAR HGB CONC 33.1 g/dL (33.0-36.5); MEAN CORPUSCULAR VOLUME 90.3 FL (78-98); MEAN PLATELET VOLUME 8.7 FL (7.4-10.4); MONOCYTES # (AUTO) 1.8 X10'3 (0-0.9); MONOCYTES % (AUTO) 9.3 % (2-12); NEUTROPHILS # (AUTO) 14.3 X10'3 (1.8-7.7); NEUTROPHILS % (AUTO) 75.3 % (42-75); PLATELET COUNT 309 X10'3 (140-440); RED BLOOD COUNT 4.69 X10'6 (4.20-5.60); RED CELL DISTRIBUTION WIDTH 14.7 % (11.5-14.5)
--- NOTE | 2019-12-04 07:47 | NUR ---
promotional table spacer PAGER ID: [phone] MESSAGE: [id number]: Dayanara Diggs - Would you like to replace pt phosphorus at 1.8? No replacement orders -Clara [phone]
[2019-12-04] MEDS: levoTHYROXINE 25mcg tablet PO SCH (07:54)
[2019-12-04] MEDS: atorvastatin 20mg tablet PO SCH (07:54)
[2019-12-04] MEDS: lactobacillus rhamnosus 10,000 MMU CELLS/CAPSULE PO SCH ×2 (07:54→21:21)
[2019-12-04] MEDS: duloxetine 30mg CAPSULE.DR PO SCH (07:54)
[2019-12-04] MEDS: nystatin 15 GM powder TP SCH ×3 (07:54→21:20)
[2019-12-04] MEDS: lisinopril 20mg tablet PO SCH (07:55)
[2019-12-04] MEDS: digoxin 125mcg (0.125mg) tablet PO SCH (07:55)
[2019-12-04] MEDS: amLODIPine 5mg tablet PO SCH (07:56)
[2019-12-04] MEDS: metoprolol tartrate 12.5mg (1/2 tablet) PEG SCH ×2 (07:56→21:21)
[2019-12-04] MEDS: K and/or MAG REPLACEMENT MC SCH ×2 (07:57→20:00)
[2019-12-04] MEDS: piperacillin/tazo 3.375gm/50ml 50 ML IV SCH ×2 (07:57→16:00)
[2019-12-04] MEDS ORDERED: potassium phosphate inj 30 MMOL in normal saline 500ml IV soln 500 ML IV ONE (08:10)
[2019-12-04] MEDS: aspirin 81mg tab.chew PO SCH (08:12)
[2019-12-04] MEDS: ipratropium/albuterol 3ml nebule IH SCH ×4 (08:27→19:47)
[2019-12-04] MEDS: amiodarone/D5 360MG/200ML BAG 200 ML IV SCH ×4 (10:47→22:55)
--- NOTE | 2019-12-04 12:30 | NUR ---
Pt very weak and seemingly fatigued, not as alert as yesterday during my visit. Ptosis of the right eye more prominent. Is aware she is being spoken to and will follow simple commands with right hand, however, not speaking. Will blink but not nod to command.Temperature up today. Tachypneic and still in afib with RVR.
--- NOTE | 2019-12-04 13:00 | NUR ---
New orders from Maddy to switch feeding rate to 20ml/hr, a CXR, and for PT to do chest physiotherapy.
[2019-12-04] MEDS: morphine 2 MG/ML inj. syringe IV PRN (13:30)
--- NOTE | 2019-12-04 14:25 | NUR ---
PAGER ID: [phone] MESSAGE: [id number]: Dayanara Diggs - How often would you like PT to do chest physio and what position? -Clara [phone]
--- NOTE | 2019-12-04 16:40 | NUR ---
PAGER ID: [phone] MESSAGE: [id number]: Million, Dayanara - FYI: Still febrile at 100.4. Still intervening with cooling measures -Clara [phone]
--- NOTE | 2019-12-04 17:24 | NUR ---
PAGER ID: [phone] MESSAGE: [id number]: Dayanara Dontae - FYI: Pt has had several episodes of HR in 140-150s throughout shift goes back down to 110s-120s -vanna [phone]
--- NOTE | 2019-12-04 17:45 | NUR ---
PAGER ID: [phone] MESSAGE: [id number]: Dyaanara Dontae - FYI: Afebrile. Pt HR sustaining in 150s for the past 10mins -vanna [phone]
--- NOTE | 2019-12-04 18:35 | NUR ---
Problems reprioritized. Patient report given, questions answered & plan of care reviewed with LOGAN Sumner.
[2019-12-04] MEDS: insulin glargine (Lantus) pen - multi-dose SQ SCH (21:45)
[2019-12-05] MEDS: piperacillin/tazo 3.375gm/50ml 50 ML IV SCH ×3 (00:56→16:24)
[2019-12-05] MEDS: hydrALAZINE 20mg/ml inj. IV PRN (01:57)
[2019-12-05] MEDS: insulin regular, human U-100 3ml vial - multi-dose SQ SCH ×3 (02:21→20:49)
[2019-12-05 03:00] VITALS: BP 168/70
[2019-12-05 05:26] LABS: BASOPHILS % (AUTO) 0.2 % (0-1); EOSINOPHILS % (AUTO) 0.2 % (0-6); HEMATOCRIT 41.8 % (35.0-45.0); HEMOGLOBIN 13.8 g/dl (12.0-16.0); LYMPHOCYTES # (AUTO) 1.7 X10'3 (1.1-4.8); LYMPHOCYTES % (AUTO) 9.1 % (21-51); MEAN CORPUSCULAR HEMOGLOBIN 29.4 PG (27.0-31.0); MEAN CORPUSCULAR HGB CONC 32.9 g/dL (33.0-36.5); MEAN CORPUSCULAR VOLUME 89.2 FL (78-98); MEAN PLATELET VOLUME 8.7 FL (7.4-10.4); MONOCYTES # (AUTO) 1.6 X10'3 (0-0.9); MONOCYTES % (AUTO) 8.5 % (2-12); NEUTROPHILS # (AUTO) 15.5 X10'3 (1.8-7.7); PLATELET COUNT 315 X10'3 (140-440); RED BLOOD COUNT 4.69 X10'6 (4.20-5.60); RED CELL DISTRIBUTION WIDTH 14.9 % (11.5-14.5); WHITE BLOOD COUNT 18.9 X10'3 (4.5-11.0)
[2019-12-05 05:31] LABS: ALANINE AMINOTRANSFERASE 26 U/L (12-78); ALBUMIN 2.8 G/DL (3.4-5.0); ALBUMIN/GLOBULIN RATIO 0.7 (1.1-1.5); ALKALINE PHOSPHATASE 93 IU/L (46-116); ANION GAP 9 (8-16); ASPARTATE AMINO TRANSFERASE 17 U/L (10-37); BILIRUBIN,TOTAL 0.5 MG/DL (0.1-1.0); BLOOD UREA NITROGEN 32 MG/DL (7-18); BUN/CREATININE RATIO 28.3 (6.6-38.0); CALCIUM 9.3 MG/DL (8.5-10.1); CHLORIDE 113 MMOL/L (99-107); CREATININE 1.13 MG/DL (0.40-0.90); GLUCOSE 296 MG/DL (70-104); MAGNESIUM 2.6 MG/DL (1.5-2.4); PHOSPHORUS 3.5 MG/DL (2.3-4.5); SODIUM 150 MMOL/L (135-145); TOTAL CARBON DIOXIDE 28.4 MMOL/L (24-32); eGFR 47 ML/MIN
[2019-12-05 07:00] VITALS: BP 162/76
[2019-12-05] MEDS: ipratropium/albuterol 3ml nebule IH SCH ×4 (07:15→19:00)
--- NOTE | 2019-12-05 07:51 | NUR ---
Patient in room PCU 3027. I have received report from Taisha FORD and had the opportunity to ask questions and assume patient care.
[2019-12-05] MEDS: K and/or MAG REPLACEMENT MC SCH ×2 (08:00→19:35)
[2019-12-05] MEDS: levoTHYROXINE 25mcg tablet PO SCH (09:17)
[2019-12-05] MEDS: POTASSIUM BICARB 20meq eff tab 20 MEQ TABLET.EFF PO PRN (09:17)
[2019-12-05] MEDS: amLODIPine 5mg tablet PO SCH (09:23)
[2019-12-05] MEDS: duloxetine 30mg CAPSULE.DR PO SCH (09:23)
[2019-12-05] MEDS: lactobacillus rhamnosus 10,000 MMU CELLS/CAPSULE PO SCH ×2 (09:23→19:40)
[2019-12-05] MEDS: aspirin 81mg tab.chew PO SCH (09:23)
[2019-12-05] MEDS: amiodarone/D5 360MG/200ML BAG 200 ML IV SCH ×3 (09:23→17:09)
[2019-12-05] MEDS: metoprolol tartrate 12.5mg (1/2 tablet) PEG SCH ×2 (09:23→19:40)
[2019-12-05] MEDS: lisinopril 20mg tablet PO SCH (09:24)
[2019-12-05] MEDS: digoxin 125mcg (0.125mg) tablet PO SCH (09:24)
[2019-12-05] MEDS: nystatin 15 GM powder TP SCH ×3 (09:24→20:52)
[2019-12-05] MEDS: atorvastatin 20mg tablet PO SCH (09:24)
--- NOTE | 2019-12-05 09:36 | NUR ---
Very alert this morning, speaking some with better quality to voice. Neglect improved. Unable to tell me her current age or month of year. Able to follow simple commands with right side. Flushed but afebrile per RN, at least when last temp was checked. Remains tachypneic and tachycardic, now on amio drip. C/O abd hurting. Indicates feels bloated. Abdomen appears distended. Will discuss with pts bedside RNCeli.
--- NOTE | 2019-12-05 11:16 | NUR ---
Reassessment 12/04: Per CM note patient accepted at [facility] will transfer tomorrow or thursday. Tube feeding not a goal rate, not meeting nutrition needs. Per MD order tube feeding rate turned down to 20 ml on 11/03 for concerns of aspiration pneumonia. Gastric residuals have all been under 100 ml, pt had one small BM 12/03, flatus present. Spoke with bedside RN over phone, reports abdomen with some distention (possible r/t constipation, no significant BM in 10 days, may benefit from routine bowel care d/w RN and notified MD). Recommendations: 1) continuous TF via PEG using Glucerna 1.2 with goal rate of 65 mL/hr to provide: 1560 mL total volume/day, 1872 kcal, 94 g protein, and 1256 mL water 2) Additional 105 mL water flush Q4H 3) Prealbumin q Thursday/ 4) Daily weights 5) Routine bowel care Addendum: 12/05/19 at [address] Amended: Links added. Addendum: 12/05/19 at [address] Reassessment 12/04: Per CM note patient accepted at [facility] will transfer tomorrow or thursday. Tube feeding not a goal rate, not meeting nutrition needs. Per MD order tube feeding rate turned down to 20 ml on 11/03 for concerns of aspiration pneumonia. Gastric residuals have all been under 100 ml, pt had one small BM 12/03, flatus present. Spoke with bedside RN over phone, reports abdomen with some distention (possible r/t constipation, no significant BM in 10 days, may benefit from routine bowel care d/w RN and notified MD). Recommendations: 1) continuous TF via PEG using Glucerna 1.2 with goal rate of 65 mL/hr to provide: 1560 mL total volume/day, 1872 kcal, 94 g protein, and 1256 mL water 2) Additional 200 mL water flush q 4 hours per MD order 3) Prealbumin q Thursday/ 4) Daily weights 5) Routine bowel care
[2019-12-05] MEDS ORDERED: ondansetron 4mg rapidly disintigrating tab PO PRN (14:15)
[2019-12-05 15:00] VITALS: BP 133/74
--- NOTE | 2019-12-05 16:38 | NUR ---
Unable to cover patient's blood sugar with insulin due to RN workload. Will recheck blood glucose
[2019-12-05 18:00] VITALS: BP 153/104
--- NOTE | 2019-12-05 18:31 | NUR ---
Problems reprioritized. Patient report given, questions answered & plan of care reviewed with Chrissy FORD.
--- NOTE | 2019-12-05 18:36 | NUR ---
Page sent to Dr. Castañeda: PAGER ID: [phone] MESSAGE: [id number] Dayanara Ricci: Patient is back in A Fib, HR 120's-140's. On Amiodarone gtt running. Thanks, Celi on U
--- NOTE | 2019-12-05 19:22 | NUR ---
Patient in room PCU 3027. I have received report from Rj FORD and had the opportunity to ask questions and assume patient care.
[2019-12-05 20:00] VITALS: BP 132/89
[2019-12-05] MEDS: insulin glargine (Lantus) pen - multi-dose SQ SCH (20:50)
[2019-12-05 22:00] VITALS: BP 147/80
[2019-12-06] VITALS (7 sets, daily range): BP systolic 112–156; BP diastolic 73–94
--- NOTE | 2019-12-06 00:03 | NUR ---
PAGER ID: [phone] MESSAGE: Dayanara Alvarez Rm [id number] Do you want patient to get the 50mg Lopressor now since she already did get her 12.5mg tonight? BP is 147/80 right now. Thanks. Chrissy FORD ext. [phone]
[2019-12-06] MEDS: amiodarone/D5 360MG/200ML BAG 200 ML IV SCH ×3 (00:08→11:48)
[2019-12-06] MEDS: piperacillin/tazo 3.375gm/50ml 50 ML IV SCH ×2 (00:08→11:47)
[2019-12-06] MEDS: metoprolol tartrate 50mg tablet PEG SCH ×2 (00:12→08:55)
[2019-12-06] MEDS: insulin regular, human U-100 3ml vial - multi-dose SQ SCH ×2 (02:10→14:43)
[2019-12-06 05:19] LABS: BASOPHILS # (AUTO) 0.1 X10'3 (0-0.2); BASOPHILS % (AUTO) 0.3 % (0-1); EOSINOPHILS # (AUTO) 0.1 X10'3 (0-0.9); EOSINOPHILS % (AUTO) 0.4 % (0-6); HEMATOCRIT 42.7 % (35.0-45.0); HEMOGLOBIN 13.7 g/dl (12.0-16.0); LYMPHOCYTES # (AUTO) 2.3 X10'3 (1.1-4.8); LYMPHOCYTES % (AUTO) 11.6 % (21-51); MEAN CORPUSCULAR HGB CONC 32.1 g/dL (33.0-36.5); MEAN CORPUSCULAR VOLUME 90.5 FL (78-98); MEAN PLATELET VOLUME 8.9 FL (7.4-10.4); MONOCYTES # (AUTO) 1.7 X10'3 (0-0.9); MONOCYTES % (AUTO) 8.2 % (2-12); NEUTROPHILS # (AUTO) 16.1 X10'3 (1.8-7.7); NEUTROPHILS % (AUTO) 79.5 % (42-75); PLATELET COUNT 223 X10'3 (140-440); RED BLOOD COUNT 4.72 X10'6 (4.20-5.60); RED CELL DISTRIBUTION WIDTH 15.1 % (11.5-14.5); WHITE BLOOD COUNT 20.3 X10'3 (4.5-11.0)
[2019-12-06 05:38] LABS: ALANINE AMINOTRANSFERASE 33 U/L (12-78); ALBUMIN 2.5 G/DL (3.4-5.0); ALBUMIN/GLOBULIN RATIO 0.6 (1.1-1.5); ALKALINE PHOSPHATASE 83 IU/L (46-116); ANION GAP 9 (8-16); ASPARTATE AMINO TRANSFERASE 29 U/L (10-37); BILIRUBIN,TOTAL 0.6 MG/DL (0.1-1.0); BLOOD UREA NITROGEN 34 MG/DL (7-18); BUN/CREATININE RATIO 34.7 (6.6-38.0); CALCIUM 9.1 MG/DL (8.5-10.1); CHLORIDE 120 MMOL/L (99-107); CREATININE 0.98 MG/DL (0.40-0.90); GLUCOSE 114 MG/DL (70-104); MAGNESIUM 2.7 MG/DL (1.5-2.4); PHOSPHORUS 3.4 MG/DL (2.3-4.5); POTASSIUM 3.6 MMOL/L (3.5-5.1); TOTAL CARBON DIOXIDE 28.6 MMOL/L (24-32); TOTAL PROTEIN 6.7 G/DL (6.4-8.2); eGFR 55 ML/MIN
[2019-12-06 05:49] LABS: SODIUM 158 MMOL/L (135-145)
--- NOTE | 2019-12-06 05:50 | NUR ---
PAGER ID: [phone] MESSAGE: Dayanara Alvarez RM [id number] Patient has critical Sodium of 158. She was 150 yesterday. Chrissy FORD ext. [phone]
--- NOTE | 2019-12-06 06:21 | NUR ---
Problems reprioritized. Patient report given, questions answered & plan of care reviewed with Lizz FORD.
--- NOTE | 2019-12-06 06:31 | NUR ---
Patient in room U 3027. I have received report from Chrissy and had the opportunity to ask questions and assume patient care. Patient awake and no apparent distress.
[2019-12-06] MEDS: ipratropium/albuterol 3ml nebule IH SCH ×2 (07:08→11:16)
[2019-12-06] MEDS: K and/or MAG REPLACEMENT MC SCH (08:00)
[2019-12-06] MEDS: levoTHYROXINE 25mcg tablet PO SCH (08:53)
[2019-12-06] MEDS: aspirin 81mg tab.chew PO SCH (08:53)
[2019-12-06] MEDS: duloxetine 30mg CAPSULE.DR PO SCH (08:53)
[2019-12-06] MEDS: amLODIPine 5mg tablet PO SCH (08:54)
[2019-12-06] MEDS: lisinopril 20mg tablet PO SCH (08:55)
[2019-12-06] MEDS: atorvastatin 20mg tablet PO SCH (08:55)
[2019-12-06] MEDS: nystatin 15 GM powder TP SCH ×2 (08:55→13:27)
[2019-12-06] MEDS: lactobacillus rhamnosus 10,000 MMU CELLS/CAPSULE PO SCH (08:55)
[2019-12-06] MEDS: digoxin 125mcg (0.125mg) tablet PO SCH (08:59)
--- NOTE | 2019-12-06 10:58 | NUR ---
Tube feed is running at 20ml/hr per MD order. Addendum: 12/06/19 at 1059 by Louise Antonio RN Amended: Links added.
--- NOTE | 2019-12-06 11:00 | NUR ---
Tube feed running at 20ml/hr per MD order Addendum: 12/06/19 at 1101 by Louise Antonio RN Amended: Links added.
--- NOTE | 2019-12-06 12:39 | NUR ---
in at bedside and in agreement with POC. natural science manager in and speaking to . Pt. to be transferred closer to home where she will be on comfort care.
--- NOTE | 2019-12-06 14:25 | NUR ---
Called and gave report to Ibrahima FORD at [facility]. All questions answered. still at bedside. He was informed of hospital visiting policy at [facility] and that they are allowing limited visitors on a case by case basis.
--- NOTE | 2019-12-06 16:00 | NUR ---
Patient was just discharged to [facility] and was being transferred by Татьяна Cargo. Her was by her side until she left and took all of the patient's belongings with him. Transfer packet was given to Татьяна Cargo.
== END 2019-12-06 16:07 | disposition short-term general hospital (02) | DRG 64 ==
LOC: ORTHO 4S 16:23 → PCU 3S 11-29 17:30
PROVIDERS: ADMIT Family Medicine; ATTEND Family Medicine
DX: I63.9 Cerebral infarction, unspecified (principal); J69.0 Pneumonitis due to inhalation of food and vomit; N39.0 Urinary tract infection, site not specified; G81.94 Hemiplegia, unspecified affecting left nondominant side; E87.0 Hyperosmolality and hypernatremia; Z16.24 Resistance to multiple antibiotics; E11.9 Type 2 diabetes mellitus without complications; I48.91 Unspecified atrial fibrillation; R13.10 Dysphagia, unspecified; B96.1 Klebsiella pneumoniae [K. pneumoniae] as the cause of diseases classified elsewhere; E03.9 Hypothyroidism, unspecified; E11.65 Type 2 diabetes mellitus with hyperglycemia; E78.5 Hyperlipidemia, unspecified; I10 Essential (primary) hypertension; R13.12 Dysphagia, oropharyngeal phase; R47.01 Aphasia; Z51.5 Encounter for palliative care; R00.0 Tachycardia, unspecified; R29.719 NIHSS score 19; Z66 Do not resuscitate; Z79.899 Other long term (current) drug therapy; Z82.49 Family history of ischemic heart disease and other diseases of the circulatory system; Z86.73 Personal history of transient ischemic attack (TIA), and cerebral infarction without residual deficits; Z87.891 Personal history of nicotine dependence; Z90.710 Acquired absence of both cervix and uterus; Z93.1 Gastrostomy status; Z90.89 Acquired absence of other organs; Z88.6 Allergy status to analgesic agent
CPT/HCPCS: 36415; 43239; 43246; 70450; 70544; 70551; 71045; 74018; 80048; 80053; 80061; 80162; 81001; 82948; 83036; 83605; 83735; 84100; 84132; 84134; 84145; 84443; 84484; 85025; 85610; 85651; 85730; 87040; 87081; 87088; 88305; 88342; 92508; 92616; 93306; 93880; 94640; 94668; 94760; 97110; 97112; 97163; 97530; 97535; 99152; 99153; A4620; B4087; G0378; J0360; J0690; J1160; J1644; J1815; J2185; J2250; J2270; J2405; J2543; J3010; J3480; J3490; J7030; J7040